=== PATIENT | female | born 1970 | race American Indian/Alaskan Native ===

== ENCOUNTER 2018-09-04 13:25 | Emergency (ER) | payer SELFPAY ==
[2018-09-04 13:34] VITALS: BP 159/85
--- NOTE | 2018-09-04 14:47 | XRay Report ---
RIGHT KNEE, 3 views: History: Pain and swelling A subtle minimally displaced fracture is suspected involving the tibial spines. This is best demonstrated on the oblique image. The remaining bony structures are intact. No significant degenerative changes. Small joint effusion is identified on the lateral image. IMPRESSION: Abnormal tibial spines. Nondisplaced fracture is suspected. Consider further evaluation with CT or MRI.
[2018-09-04] MEDS ORDERED: IBUPROFEN PO ONE (14:50)
--- NOTE | 2018-09-04 14:57 | Emergency Department Report ---
ED Extremity Problem HPI - General Chief complaint: Extremity Injury, Lower Stated complaint: RT KNEE INJURY Time Seen by Provider: 09/04/18 13:58 Source: patient, family Mode of arrival: Wheelchair Limitations: Language Barrier - History of Present Illness Initial comments: Patient is a 47-year-old female who is presenting with knee pain. Carmen bermudez fell from a chair last night while intoxicated. Patient has been unable to bear weight without severe limp. Patient has pain with range of motion as well. Pain is throbbing and aching and 8 out of 10 in severity. Patient denies hitting her head or head trauma. Patient has no other complaints at this time.1` - Related Data Previous Rx's Medication Instructions Recorded Last Taken Type HYDROcodone/APAP 5-325 [[place] 1 each PO Q6HR PRN #15 tablet 09/04/18 Unknown Rx 5/325] Ibuprofen [Motrin] 800 mg PO Q8HR PRN #20 tablet 09/04/18 Unknown Rx Allergies Allergy/AdvReac Type Severity Reaction Status Date / Time No Known Allergies Allergy Unverified 09/04/18 13:34 ED Review of Systems ROS: Stated complaint: RT KNEE INJURY Other details as noted in HPI Comment: All other systems reviewed and negative ED Past Medical Hx - Past Medical History Hx Hypertension: Yes Hx Diabetes: Yes - Surgical History Hx Cholecystectomy: Yes Hx Appendectomy: Yes Additional Surgical History: right knee, x3, neck fusion,skin cyst - Social History Smoking Status: Unknown if ever smoked Substance Use Type: Alcohol - Medications Home Medications: Home Medications Medication Instructions Recorded Confirmed Last Taken Type HYDROcodone/APAP 5-325 [[place] 1 each PO Q6HR PRN #15 tablet 09/04/18 Unknown Rx 5/325] Ibuprofen [Motrin] 800 mg PO Q8HR PRN #20 tablet 09/04/18 Unknown Rx ED Physical Exam - General Limitations: Language Barrier (patient's daughter is here for as a manager qa however the patient does speak some danish) General appearance: alert, in no apparent distress - Head Head exam: Present: atraumatic, normocephalic - Eye Eye exam: Present: normal appearance - ENT ENT exam: Present: mucous membranes moist - Neck Neck exam: Present: normal inspection - Respiratory Respiratory exam: Present: normal lung sounds bilaterally. Absent: respiratory distress - Cardiovascular Cardiovascular Exam: Present: regular rate, normal rhythm. Absent: systolic murmur, diastolic murmur, rubs, gallop - GI/Abdominal GI/Abdominal exam: Present: soft, normal bowel sounds - Extremities Exam Extremities exam: Present: normal inspection - Expanded Lower Extremity Exam Right Knee exam: Present: normal inspection, full ROM (with pain), full knee extension. Absent: tenderness, swelling, abrasion, laceration, ecchymosis, deformity, dislocation, erythema, effusion, posterior draw sign, pain/laxity with valgus, pain/laxity with varus - Back Exam Back exam: Present: normal inspection - Neurological Exam Neurological exam: Present: alert, oriented X3 - Psychiatric Psychiatric exam: Present: normal affect, normal mood - Skin Skin exam: Present: warm, dry, intact, normal color. Absent: rash ED Course Vital Signs 09/04/18 13:29 Temperature 97.4 F L Pulse Rate 80 Respiratory 18 Rate Blood Pressure 159/85 O2 Sat by Pulse 99 Oximetry ED Medical Decision Making - Radiology Data [facility] [address] [place] [address] XRay Report Signed Patient: ROBERTO LE MR#: [id number] : 1970 Acct:[id number] Age/Sex: 47 / F ADM Date: 09/04/18 Loc: ED Attending Dr: Ordering Physician: RACHEL RICHARD MD Date of Service: 09/04/18 Procedure(s): XR knee 3V RT Accession Number(s): [id number] cc: RACHEL RICHARD MD Fluoro Time In Minutes: RIGHT KNEE, 3 views: History: Pain and swelling A subtle minimally displaced fracture is suspected involving the tibial spines. This is best demonstrated on the oblique image. The remaining bony structures are intact. No significant degenerative changes. Small joint effusion is identified on the lateral image. IMPRESSION: Abnormal tibial spines. Nondisplaced fracture is suspected. Consider further evaluation with CT or MRI. Transcribed By: TTR Dictated By: SATURNINO SPICER JR, MD Electronically Authenticated By: SATURNINO SPICER JR, MD Signed Date/Time: 09/04/18 1444 DD/ 42 TD/TT: 09/04/181443 - Medical Decision Making Patient may have a subtle tibial fracture at the spines. Patient placed in a knee immobilizer and given crutches and will follow with Dr. Holguin. Patient was given meds for symptomatic relief. Critical care attestation.: If time is entered above; I have spent that time in minutes in the direct care of this critically ill patient, excluding procedure time. ED Disposition Clinical Impression: Occult fracture of knee Disposition: DC- TO HOME OR SELFCARE Is pt being admited?: No Does the pt Need Aspirin: No Condition: Stable Instructions: Knee Effusion (ED), RICE Therapy (ED) Referrals: LAURITA HOLGUIN MD [Staff Physician] - 3-5 Days Time of Disposition: 14:58
== END 2018-09-04 15:38 | disposition home or self-care (01) ==
LOC: ED 13:25
DX: S82.001A Unspecified fracture of right patella, initial encounter for closed fracture (principal); I10 Essential (primary) hypertension; E11.9 Type 2 diabetes mellitus without complications; Z90.49 Acquired absence of other specified parts of digestive tract; W07.XXXA Fall from chair, initial encounter; Y93.89 Activity, other specified; Y92.89 Other specified places as the place of occurrence of the external cause; Y99.8 Other external cause status